=== PATIENT | female | born 1980 | race Hispanic/Latino ===

== ENCOUNTER 2023-04-21 07:01 | Emergency (ER) | payer BC | END 2023-04-21 08:05 | disposition home or self-care (01) | LOC: CSHERS 07:01 | DX: L25.9 Unspecified contact dermatitis, unspecified cause (principal); I10 Essential (primary) hypertension | CPT/HCPCS: 36416; 99283 ==

== ENCOUNTER 2023-07-17 08:49 | Outpatient (CLI) | payer BC | END 2023-07-17 08:50 | disposition home or self-care (01) | LOC: CSHMAMMO 08:49 | PROVIDERS: ATTEND Nurse Practitioner Family | DX: Z12.31 Encounter for screening mammogram for malignant neoplasm of breast (principal) | CPT/HCPCS: 77063; 77067 ==

== ENCOUNTER 2024-07-25 12:00 | Outpatient (CLI) | payer BC | END 2024-07-25 12:01 | disposition home or self-care (01) | LOC: CSHMAMMO 12:00 | PROVIDERS: ATTEND Obstetrics & Gynecology | DX: Z12.31 Encounter for screening mammogram for malignant neoplasm of breast (principal) | CPT/HCPCS: 77063; 77067 ==